=== PATIENT | female | born 1965 | race Caucasian/White ===

== ENCOUNTER 2017-03-10 06:52 | Outpatient (CLI) | payer MEDICARE, OTHER ==
[~2017-03-10] VITALS: Ht 170.2 cm; Wt 78.0 kg
[2017-03-10] VITALS (9 sets, daily range): BP systolic 130–145; BP diastolic 72–93
[~2017-03-10 06:52] MED LIST: AMLO5TAB2 PO; ASPI325T70 PO; CLOP75TA PO; CRESTOR10 MG PO; GLYB5TAB3 PO; LORA0.5T96 PO; LOSA50TA2 PO; METF-620 PO; METO-239 PO; METO50TA6 PO; OLME20TA19 PO; OLME40TA12 PO; PANT40TA5 PO; PREN1TAB13 PO
[2017-03-10] MEDS ORDERED: LIDOCAINE 2% 20 ML VIAL. ONE (07:06)
[2017-03-10] MEDS ORDERED: IODIXANOL 320 MG/ML 100 ML VIAL. ONE (07:06)
[2017-03-10] MEDS ORDERED: MULT1TAB6 PO (07:13)
[2017-03-10] MEDS ORDERED: ASPI-630 PO (07:13)
[2017-03-10 07:16] LABS: HEMATOCRIT 45.2 % (36.0-47.0); HEMOGLOBIN 15.7 g/dL (12.0-15.5); RED BLOOD COUNT 4.47 x10^6/uL (3.50-5.40); RED CELL DISTRIBUTION WIDTH 14.3 % (11.5-14.5); WHITE BLOOD COUNT 6.4 x10^3/uL (4.0-11.0)
[2017-03-10 07:24] LABS: CALCIUM 9.3 mg/dL (8.5-10.1); CREATININE 0.8 mg/dL (0.6-1.0); GFR 75.3; POTASSIUM 4.4 mmol/L (3.5-5.1)
[2017-03-10 07:29] LABS: INR 0.9 (0.8-1.1); PROTHROMBIN TIME PATIENT 11.7 SEC (11.7-14.0)
[2017-03-10] MEDS ORDERED: fentaNYL PF VIAL 250 MCG/5 ML VIAL ONE (07:57)
[2017-03-10] MEDS ORDERED: MIDAZOLAM HCL/PF 5 MG/5 ML VIAL. ONE (07:57)
--- NOTE | 2017-03-10 08:28 | PDOC ---
MODERATE SEDATION ASSESSMENT RISKS/ALTERNATIVES Risks/Alternatives Risks and alternatives of this type of sedation and procedure discussed with: RISK/ALTERNATIVES: Patient H & P ON CHART H & P H & P on chart and reviewed for co-morbid conditions and appropriate labs. H&P ON CHART: Yes STATUS PREG STATUS ASSESSED: N/A MEDS/ALLERGIES REVIEWED Meds/Allergies Reviewed Medications and Allergies including time and route of recently administered narcotics and sedatives. MEDS/ALLERGIES REVIEWED: Yes ASA RATING ASA RATING: II AIRWAY ASSESSMENT Airway Assessment Airway patency, oral function limitations, presence of caps, crowns, dentures, partials, and ability to extend neck assessed. AIRWAY ASSESSMENT: Yes MALLAMPATI SCORE MALLAMPATI SCORE: II PRE-SEDATION ASSESSMENT PRE-SEDATION ASSESSMENT: Yes HANNAH RIVER MD Mar 10, 2017 08:28
[2017-03-10] MEDS ORDERED: HEPARIN for IV BOLUS 10,000 UNIT/10 ML VIAL. ONE (08:57)
[2017-03-10] MEDS ORDERED: IODIXANOL 320 MG/ML 100 ML VIAL. IART ONE (09:30)
[2017-03-10] MEDS ORDERED: fentaNYL PF VIAL 250 MCG/5 ML VIAL IV ONE (09:30)
[2017-03-10] MEDS ORDERED: HEPARIN for IV BOLUS 10,000 UNIT/10 ML VIAL. IV ONE (09:30)
[2017-03-10] MEDS ORDERED: LIDOCAINE 2% 20 ML VIAL. IJ ONE (09:30)
[2017-03-10] MEDS ORDERED: MIDAZOLAM HCL/PF 5 MG/5 ML VIAL. IV ONE (09:30)
[2017-03-10] MEDS ORDERED: 0.9 % SODIUM CHLORIDE 10 ML DISP.SYRIN. IV PRN (10:45)
[2017-03-10] MEDS ORDERED: NITROGLYCERIN SUBLINGUAL 0.4 MG BOTTLE OF 25. SL PRN (10:45)
--- NOTE | 2017-03-10 13:31 | CARD ---
APPROVED REPORT Procedure(s) performed: Moderate sedation: 67 minutes HISTORY The patient is a 52 year-old female with a history of : tobacco history() , hypertension, dyslipidemi a. INDICATION The indication(s) include : Bilateral left greater than right claudication with known PAD.. PROCEDURE NARRATIVE After appropriate informed consent the patient was brought to the catheterization laboratory and plac ed in the supine position. The bilateral groins were prepped and draped in usual sterile fashion. 10 mL of 2% lidocaine local anesthesia was used to anesthetize the left groin. Using an 18-gauge need le and a J-tipped guidewire a 5 Nigerian sheath was placed in the left common femoral artery. Subsequen tly, a Glidewire was used to traverse the left external iliac artery stenosis and ultimately a Omni F lush catheter was placed in the abdominal aorta. Digital subtraction angiography was then performed w ith runoff of the bilateral lower extremities. Next, the Omni Flush catheter was used to engage the contralateral common iliac artery and a Glidewir e was then advanced to the distal right external iliac artery. Next, the Omni Flush catheter was kailee sharon and a 4 Nigerian angled glide catheter was inserted and a more selective runoff of the right lower extremity was performed with pullback maneuvers to evaluate for gradients across the iliac stent. Finally, a pullback was performed across the left external iliac artery stenosis confirming significa nt disease. Left lower summary artery runoff was then also performed. Ultimately, the sheath was kailee sharon and hemostasis was achieved with manual compression. Findings: Aorta: No significant disease RCIA: 20% ostial stenosis. RIIA: No significant disease. REIA: Patent stent with 60% ISR with 40 mm Hg pressure gradient. RCFA: No significant disease. RSFA: Patent ostial stent with 30% diffuse ISR. Mid to distal SFA stent with 80% ISR. RPROF: No significant disease. RPOP: No significant disease. RPT: Occluded RPER: Patent with distal collateralization tot he PT. RAT: Patent with sluggish flow compared to peroneal vessel, suggestive of distal high grade disease. LCIA: No significant disease. LIIA: No significant disease. KALPANA: Severe diffuse 80% stenosis. LCFA: No significant disease. LSFA: Patent stent with an ostial/proximal 60% ISR. Patent long segment SFA stent. LPOP: No significant disease. LAT: No significant disease. LPT: No significant disease. LPER: No significant disease. Conclusion 1. Multilevel inflow and outflow disease with ISR of the previously placed REIA, RSFA and LSFA stents . Culprit lesion for LLE pain is likely diffuse KALPANA stenosis. 2. Consider vascular surgery evaluation (Would need aorto-bifem, followed by right fem-pop) versus re peat PVI using drug eluting balloons. 3. Given contrast load, single vessel run-off of the RLE, will plan for staged intervention after vas cular surgery evaluation for discussion of other options. Recommendations Smoking Cessation Cardiac Rehabilitation Referral
== END 2017-03-10 13:52 | disposition home or self-care (01) ==
LOC: CCL 06:52
PROVIDERS: ATTEND Internal Medicine Cardiovascular Disease
DX: I70.213 Atherosclerosis of native arteries of extremities with intermittent claudication, bilateral legs (principal); E78.5 Hyperlipidemia, unspecified; I11.0 Hypertensive heart disease with heart failure; I50.9 Heart failure, unspecified; I25.10 Atherosclerotic heart disease of native coronary artery without angina pectoris; Z72.0 Tobacco use; Z87.891 Personal history of nicotine dependence; Z98.51 Tubal ligation status; Z86.39 Personal history of other endocrine, nutritional and metabolic disease; Z87.440 Personal history of urinary (tract) infections
CPT/HCPCS: 36415; 75630; 80048; 85027; 85610; 99152; 99153; C1769; C1892; J1644; J2250; J3010; Q9967; 75625; J2001

== ENCOUNTER 2018-11-15 08:42 | Inpatient (IN) | payer MEDICARE, MEDICAID ==
[~2018-11-15] VITALS: Ht 170.2 cm; Wt 69.4 kg
[2018-11-15 08:39] VITALS: BP 117/62
[~2018-11-15 08:42] MED LIST changes: +AMLO5TAB10 PO; -AMLO5TAB2 PO; +ASPI-630 PO; +LOSA-73 PO; -LOSA50TA2 PO; -METF-620 PO; +METF10007 PO; +MULT1TAB6 PO; +OLME20TA17 PO; -OLME20TA19 PO; -PANT40TA5 PO; +PANT40TA77 PO; +SAXA5TAB PO
--- NOTE | 2018-11-15 09:00 | NUR ---
The patient Ms. Armida Hill, 53 year old female, admitted from [facility] due to vaginal bleeding. The patient is alert, oriented x 4, denies pain, with LR as IVF and potts in place upon transfer. She arrived at the unit at 0830 on gurney accompanied by transport personnel. The patient was oriented to the unit policies, call light placed within reach.
[2018-11-15 10:53] VITALS: BP 117/51
[2018-11-15] MEDS ORDERED: IV DEXTROSE 5% 250 ML BAG. IV PRN (11:15)
[2018-11-15] MEDS ORDERED: DEXTROSE 50% 25 GM / 50ML DISP.SYRIN. IV PRN (11:15)
[2018-11-15] MEDS: INSULIN LISPRO 300 UNITS/3 ML INSULN.PEN. SQ SCH ×2 (12:00→17:00)
--- NOTE | 2018-11-15 12:00 | CONS ---
DATE OF CONSULTATION: 11/15/2018 SUBJECTIVE: This patient is a 53-year-old white female who is being admitted to the hospital for COPD, has been on Coumadin and getting oxygen and IV fluids. The patient is seen in consultation for vaginal bleeding. She is a 3, para 3, previous one and one D and C and the other two normal deliveries and pelvic examination shows normal external genitalia with vulvar and vaginal warts which are multiple and bimanual exam shows cervix quite firm, uterus normal size, little tenderness. No adnexal masses are palpable and small amount of brownish bleeding seen today on bimanual exam. There is no bright red blood. No clots. EXTREMITIES: No edema of feet. IMPRESSION: Postmenopausal bleeding, secondary to Coumadin treatment. RECOMMENDATION: Would be Provera 10 mg tablets 1 twice a day p.o. for 1 week. The patient will require a D and C, diagnostic and removal of vulvar, vaginal warts at the same time when she is medically stable and able to be scheduled for surgery later on. This has been explained to the patient. Thank you for giving me the opportunity to participate in the management and care of this patient. GABRIELE MCGRAW MD DR: ERIC/rozina JOB#: [id number] / [id number]
[2018-11-15] MEDS: LOSARTAN POTASSIUM 50 MG TABLET. PO SCH (13:02)
[2018-11-15] MEDS: amLODIPine BESYLATE 5 MG TABLET PO SCH (13:03)
[2018-11-15] MEDS: METOPROLOL TART IMMED RELEASE 50 MG TABLET. PO SCH ×2 (13:03→20:56)
[2018-11-15 15:08] VITALS: BP 117/54
[2018-11-15] MEDS: IV RINGERS,LACTATED 1000ML 1,000 ML IV SCH (15:20)
[2018-11-15] MEDS ORDERED: LORazepam 1 MG TABLET PO PRN ×2 (16:15)
[2018-11-15] MEDS: metFORMIN 500 MG TABLET PO SCH (16:36)
[2018-11-15] MEDS ORDERED: INSULIN LISPRO 300 UNITS/3 ML INSULN.PEN. SQ ONE (17:15)
[2018-11-15 17:50] LABS: BASO # 0.1 x10^3/uL (0.0-0.2); BASO % 1 % (0-3); EOS % 1 % (0-3); HEMATOCRIT 34.6 % (36.0-47.0); LYMPH # 1.3 x10^3/uL (1.0-4.8); LYMPH % 17 % (24-48); MEAN CORPUSCULAR HEMOGLOBIN 33 pg (25-35); MEAN CORPUSCULAR HGB CONC 35 g/dL (31-37); MEAN CORPUSCULAR VOLUME 95 fL (79-100); MONO # 0.4 x10^3/uL (0.0-1.1); MONO % 5 % (0-9); NEUT # 5.7 x10^3/uL (1.8-7.7); NEUT % 76 % (31-73); PLATELET COUNT 233 x10^3/uL (140-400); RED BLOOD COUNT 3.63 x10^6/uL (3.50-5.40); RED CELL DISTRIBUTION WIDTH 14.1 % (11.5-14.5); WHITE BLOOD COUNT 7.5 x10^3/uL (4.0-11.0)
--- NOTE | 2018-11-15 18:00 | NUR ---
Patient was drowsy and fell asleep after Ativan was administered, will reevaluate, discussed with night RN.
[2018-11-15 18:12] LABS: CALCIUM 8.4 mg/dL (8.5-10.1); CREATININE 0.9 mg/dL (0.6-1.0); GFR 65.5; POTASSIUM 4.4 mmol/L (3.5-5.1)
[2018-11-15 18:18] LABS: ALBUMIN 2.7 g/dL (3.4-5.0); DIRECT BILIRUBIN 0.1 mg/dL (0.0-0.2); TOTAL BILIRUBIN 0.5 mg/dL (0.2-1.0); TOTAL PROTEIN 6.8 g/dL (6.4-8.2)
--- NOTE | 2018-11-15 18:18 | NUR ---
Orozco catheter removed at 1350, the patient had spontaneous void at 1730.
--- NOTE | 2018-11-15 18:37 | NUR ---
At 1520, the patient complained of mild headache and sweating. CIWA score was 15. The patient claims that she drinks 6 packs of beer everyday, last intake was 2200 last night. She also smokes 1/[address] Macias, several times, but was unable to reach him. 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 At 1610, called Dr. Macias again, received orders for alcohol withdrawal treatment. The patient was given Ativan per protocol. We'll continue to monitor.
[2018-11-15 19:04] VITALS: BP 133/63
[2018-11-15] MEDS ORDERED: ATORVASTATIN CALCIUM 40 MG TABLET. PO SCH (21:00)
[2018-11-15 23:40] VITALS: BP 121/64
[2018-11-16 03:36] LABS: BARBITURATES NEG (NEG); BENZODIAZEPINES NEG (NEG); CANNABINOIDS NEG (NEG); COCAINE NEG (NEG); METHADONE NEG (NEG); OPIATES NEG (NEG); PHENCYCLIDINE NEG (NEG)
[2018-11-16 03:37] LABS: AMPHETAMINE/METHAMPHETAMINE NEG (NEG)
[2018-11-16 03:49] VITALS: BP 141/66
[2018-11-16 04:20] LABS: BASO % 0 % (0-3); EOS # 0.1 x10^3/uL (0.0-0.7); EOS % 1 % (0-3); HEMATOCRIT 35.3 % (36.0-47.0); LYMPH # 2.1 x10^3/uL (1.0-4.8); LYMPH % 26 % (24-48); MEAN CORPUSCULAR HEMOGLOBIN 33 pg (25-35); MEAN CORPUSCULAR HGB CONC 34 g/dL (31-37); MEAN CORPUSCULAR VOLUME 96 fL (79-100); MONO # 0.8 x10^3/uL (0.0-1.1); MONO % 10 % (0-9); NEUT % 62 % (31-73); PLATELET COUNT 225 x10^3/uL (140-400); RED BLOOD COUNT 3.68 x10^6/uL (3.50-5.40); RED CELL DISTRIBUTION WIDTH 14.2 % (11.5-14.5)
[2018-11-16 04:43] LABS: CALCIUM 8.7 mg/dL (8.5-10.1); CREATININE 0.9 mg/dL (0.6-1.0); GFR 65.5; POTASSIUM 4.4 mmol/L (3.5-5.1)
[2018-11-16] MEDS: IV RINGERS,LACTATED 1000ML 1,000 ML IV SCH (05:21)
[2018-11-16 07:00] VITALS: BP 148/69
[2018-11-16] MEDS: METOPROLOL TART IMMED RELEASE 50 MG TABLET. PO SCH (08:15)
[2018-11-16] MEDS: metFORMIN 500 MG TABLET PO SCH (08:15)
[2018-11-16] MEDS: amLODIPine BESYLATE 5 MG TABLET PO SCH (08:16)
[2018-11-16] MEDS: LOSARTAN POTASSIUM 50 MG TABLET. PO SCH (08:17)
[2018-11-16] MEDS: INSULIN LISPRO 300 UNITS/3 ML INSULN.PEN. SQ SCH ×2 (08:21→11:40)
[2018-11-16] MEDS ORDERED: NICOTINE 21MG PATCH. TD SCH (09:00)
[2018-11-16] MEDS ORDERED: MULTIVIT INFUSN,ADULT 4,VIT K 10 ML, THIAMINE INJ 100 MG, FOLIC ACID INJ 1 MG in IV NOR... IV SCH (09:00)
[2018-11-16] MEDS ORDERED: LINAGLIPTIN 5 MG TABLET PO SCH (09:00)
--- NOTE | 2018-11-16 09:37 | HP ---
ADMIT DATE: 11/15/2018 HISTORY OF PRESENT ILLNESS: The patient is a 53-year-old female patient who came to the Emergency Room complaining of vaginal bleeding. She denied any trauma to the vaginal area. Denied any recent GI bleed from rectal area, had recently stent placed in her left leg at [facility]. Normally, she follows with Dr. Davis. She was not sure about her medication. She said she was on Coumadin before. Now she is on Plavix. She was extensively investigated. Her lab work showed her white cell count was 12,000, hemoglobin was 13.8, hematocrit 42 with MCV of 98 and platelet count of 277. She has severe hyponatremia. Serum sodium 122, potassium 4.5, chloride 85, bicarbonate 24, anion gap of 13, BUN of 8, creatinine 1 and she transferred. The patient has genital warts, and therefore, the patient was transferred to [facility] to monitor her H and H and transfuse as needed and consult the dry house operator and pest control applicator to assist with the bleeding. PAST MEDICAL HISTORY: Significant for coronary artery disease, hypertension, myocardial infarction, hyperlipidemia. She did have also peripheral arterial disease with stent deployment to both left and right lower extremity. She is known to have bronchial asthma, COPD, gastroesophageal reflux disease, anemia, generalized osteoarthritis as well as type 2 diabetes. PAST SURGICAL HISTORY: Significant for , multiple PCI with stent deployment to coronaries, peripheral arterial disease with stent to the left and right lower extremity. FAMILY HISTORY: Significant for coronary artery disease. SOCIAL HISTORY: She continued to smoke a pack a day for more than 20 years. She drinks alcohol heavily. She does not use any drugs. She lives with her family. ALLERGIES: She has no known drug allergies. MEDICATIONS: She is currently on following medications: She is on Plavix 75 mg once a day, Crestor 10 mg once a day, metoprolol tartrate 50 mg twice a day, amlodipine 5 mg once a day, losartan, potassium, Cozaar 50 mg once a day, aspirin 81 mg once a day. She is on Protonix 40 mg daily, metformin 1000 mg twice a day, saxagliptin, Onglyza 5 mg p.o. daily. REVIEW OF SYSTEMS: As per history of present illness. PHYSICAL EXAMINATION: GENERAL: On arrival to the Emergency Room, the patient looked well and was clearly in no apparent respiratory distress. No pallor, jaundice, cyanosis, or thyromegaly. No jugular venous distension. No lower limb edema. VITAL SIGNS: Her heart rate was 60, blood pressure was 120/60, temperature was 98.4, respiratory rate was 40 and oxygen saturation was 89% on room air. HEAD, EYES, EARS, NOSE AND THROAT: Normocephalic, atraumatic. NECK: Supple. HEART: Showed normal first and second heart sounds. No gallop, rub or murmur. CHEST: Clear to auscultation. No crepitation, rhonchi. ABDOMEN: Distended, soft, nontender. No guarding or rigidity. No organomegaly. All hernial orifice intact. Bowel sounds normal. NEUROLOGIC: She is awake, alert, responding appropriately. All cranial nerves intact. She moves extremities without difficulty. She ambulates without assistance or assistive devices. LABORATORY DATA: Her lab work on arrival to the Emergency Room showed a white cell count of 12,500, hemoglobin 13.8, hematocrit 42, MCV 98 and platelet count 277,000. Her chemistry showed a serum sodium of 122, potassium 4.5, chloride 85, bicarbonate 24, anion gap of 13, BUN 8, creatinine 1, estimated GFR was 58 mL/min. Her glucose was high at 494, calcium was 9, magnesium was 2.1. Total bilirubin, AST, ALT were normal. Alkaline phosphatase slightly elevated. Her beta natriuretic peptide was 556. Total protein was 7.9, albumin was 3.2. Lipase was 164. TSH was 2.385. Her prothrombin time was 9.3, INR 0.9, aPTT was 31 and D-dimer was 0.83. Urinalysis showed the urine was straw colored, hazy with a pH of 5, specific gravity of less than 1.005. The urine was negative for protein. There was large amount of glucose, negative for ketones, moderate amount of blood, negative for nitrite. There was trace of leukocyte esterase with 11-20 rbc's, 20-40 wbc's, and many bacteria. Her toxic screen was essentially negative. However, her blood alcohol level was 175. She has a wet prep, which showed that the yeasts are not seen. Trichomonas was not seen. Clue cells are present. Moderate amount of wbc's, rbc's and very few squamous cells. ASSESSMENT AND PLAN: 1. The patient was basically diagnosed with vaginal bleeding. She has also ulcers in the vagina, multiple viral wart. 2. Peripheral vascular disease with recent stent deployment to both lower extremities; tobacco use; peripheral neuropathy, human papilloma virus, type 2 diabetes; hyponatremia, most likely dilutional; mild leukocytosis. The patient was transferred to [facility] to consult the dry house operator, monitor her H and H and transfuse as needed. She was also because of her heavy alcohol, she was started on alcohol withdrawal protocol. NAY REBOLLEDO MD DR: DANYELL/rozina JOB#: [id number] / [id number]
[2018-11-16 11:00] VITALS: BP 114/60
--- NOTE | 2018-11-16 14:07 | NUR ---
SW following pt for dc planning. Chart reviewed and discussed with RN. Pt is from home and has passed 6 min walk-no home 02 needed. Anticipate dc with self care today.
--- NOTE | 2018-11-16 14:46 | DISCH ---
DISCHARGE INSTRUCTIONS Condition on Discharge Condition on Discharge: Stable Activity After Discharge Activity Instructions for Disc: Activity as tolerated Bathing Instructions: No Tub Bath until see Lifting Instructions after Dis: No heavy lifting Exercise Instruction after Dis: Progress as tolerated Driving Instructions after Dis: Do not drive today Weight Bearing Status after Di: As tolerated Diet after Discharge Diet after Discharge: Cardiac, Diabetic No Calorie Level Diet Texture: Regular Liquid Texture: Thin Liquid Swallowing Supervision: None needed Checks after Discharge Checks after discharge: Check blood press - daily, Check blood sugar, ac/hs Contacting the DRCynthia after DC Call your doctor for: If your condition worsens Follow-Up Follow up with: Dr. Yasemin Jackson Follow Up With: Primary Care Physician within 1 week. Treatment/Equipment after DC Adaptive Equipment Issued: None NAY REBOLLEDO MD Nov 16, 2018 14:46
--- NOTE | 2018-11-16 14:55 | NUR ---
Discharge Note: ALBERT MORRIS Discharge instructions and discharge home medications reviewed with Patient and a copy given. All questions have been answered and understanding verbalized. The following instructions and handouts were given: information about vaginal bleeding, medications, and follow up appointments. Discontinued lines and drains: IV line in right forearm removed, catheter tip intact. Patient discharged to home with self care with , wheelchair used for mobility to discharge vehicle.
--- NOTE | 2018-11-16 17:52 | DS ---
DATE OF DISCHARGE: 11/16/2018 HISTORY OF PRESENT ILLNESS: The patient is a 53-year-old female patient who came to the hospital with the complaint of vaginal bleeding. She denied any recent GI bleed from rectal area. She has had recently stent placed in her legs at [facility]. She was not sure about her medications. She said she was on Coumadin before, she is now on Plavix. She was extensively investigated and was found to have genital warts and vaginal bleeding and therefore, she was transferred to [facility] to monitor her H and H and transfuse her as needed, to consult the account receivable clerk to assist with bleeding. She was seen in fact by the other sports official. She was started on Provera 10 mg twice a day orally for 1 week and he recommended D and C, diagnostic and removal of vulvar, vaginal warts at the same time when she is medically stable and able to be scheduled for surgery later on. The patient did very well. She has had no new further episodes of bleeding. She remained hemodynamically stable and afebrile with stable H and H. PHYSICAL EXAMINATION: GENERAL: When I saw her today, she was sitting comfortably in bed, in no apparent respiratory distress. No pallor, jaundice, cyanosis or thyromegaly. No jugular venous distention. No limb edema. VITAL SIGNS: Her heart rate was 66, blood pressure 114/60, temperature was 98.1, respiratory rate was 19 and oxygen saturation was 95% on 2 liters of oxygen. HEAD, EYES, EARS, NOSE AND THROAT: Showed normocephalic, atraumatic. NECK: Supple. HEART: Showed normal first and second heart sounds with no gallop, rub or murmur. CHEST: Clear to auscultation. No crepitation or rhonchi. ABDOMEN: Distended, soft, nontender. NEUROLOGIC: She is awake, alert, responding appropriately. All cranial nerves intact. She moves extremities without difficulty. She ambulates without assistance or assistive devices. LABORATORY DATA: Her lab work this morning showed a white cell count of 8000, hemoglobin 12, hematocrit 35, MCV 96, and platelet count 225,000. Her chemistry showed a serum sodium 131, potassium 4.4, chloride 94, bicarbonate 30, anion gap of 7, BUN 11, creatinine 0.9, estimated GFR was 65 mL per minute. Her glucose was 403, calcium was 8.7. DISCHARGE MEDICATIONS: She was discharged home to continue on amlodipine 5 mg once a day, aspirin 81 mg once a day, Plavix 75 mg once a day, losartan potassium 50 mg once a day, metformin 1000 mg twice a day, metoprolol tartrate 50 mg twice a day, Protonix 40 mg daily, Crestor 10 mg once a day, saxagliptin for Onglyza 5 mg once a day. She was also discharged on Provera 10 mg once a day for 1 week. FINAL DISCHARGE DIAGNOSES: Postmenopausal bleeding, resolved. She has viral warts in the vulvar and vaginal areas and has multitude of other medical problems including peripheral vascular disease, hypertension, type 2 diabetes, and hyperlipidemia. NAY REBOLLEDO MD DR: DANYELL/rozina JOB#: [id number] / [id number]
[2018-11-17] MEDS ORDERED: MULTIVITAMIN with MINERAL TABLET. PO SCH (09:00)
[2018-11-17] MEDS ORDERED: FOLIC ACID 1 MG TABLET. PO SCH (09:00)
== END 2018-11-16 14:55 | disposition home or self-care (01) | DRG 760 ==
LOC: 6 SOUTH 08:42
PROVIDERS: ADMIT Internal Medicine; ATTEND Internal Medicine
DX: N95.0 Postmenopausal bleeding (principal); E87.1 Hypo-osmolality and hyponatremia; E11.51 Type 2 diabetes mellitus with diabetic peripheral angiopathy without gangrene; D72.829 Elevated white blood cell count, unspecified; T45.515A Adverse effect of anticoagulants, initial encounter; I10 Essential (primary) hypertension; E78.5 Hyperlipidemia, unspecified; A63.0 Anogenital (venereal) warts; K21.9 Gastro-esophageal reflux disease without esophagitis; M15.9 Polyosteoarthritis, unspecified; J44.9 Chronic obstructive pulmonary disease, unspecified; I25.10 Atherosclerotic heart disease of native coronary artery without angina pectoris; Z87.891 Personal history of nicotine dependence; Z79.02 Long term (current) use of antithrombotics/antiplatelets; Z95.5 Presence of coronary angioplasty implant and graft; Z82.49 Family history of ischemic heart disease and other diseases of the circulatory system; I25.2 Old myocardial infarction
CPT/HCPCS: 36415; 80048; 80076; 80307; 82962; 85025; 94618; J1815; J2060; J7030; J7120; G0378